=== PATIENT | male | born 1955 | race Hispanic/Latino ===

== ENCOUNTER 2018-05-26 14:19 | Emergency (ER) | payer BC ==
[2018-05-26 14:34] VITALS: O2SAT 100
--- NOTE | 2018-05-26 15:22 | C.PDOC ---
History Of Present Illness 62 y/o male comes in to ED complaining of a 2 day history of left inferior rib pain, described as sharp but no SOB. Patient denies any nausea, vomiting, or other associated symptoms. Patient also reports that his appetite has decreased. Time Seen by Provider: 05/26/18 14:44 Chief Complaint (Nursing): Chest Pain History Per: Patient History/Exam Limitations: no limitations Onset/Duration Of Symptoms: Days Current Symptoms Are (Timing): Still Present Past Medical History Reviewed: Historical Data, Nursing Documentation, Vital Signs Vital Signs: Last Vital Signs Temp 97.7 F 05/26/18 14:33 Pulse 89 05/26/18 14:33 Resp 22 05/26/18 14:33 BP 131/87 05/26/18 14:33 Pulse Ox 100 05/26/18 14:33 - Medical History PMH: Gastritis (gastroparesis), HTN Surgical History: CABG Family History: States: No Known Family Hx - Social History Hx Alcohol Use: No Hx Substance Use: No Review Of Systems Except As Marked, All Systems Reviewed And Found Negative. Cardiovascular: Positive for: Chest Pain Physical Exam - Physical Exam Appears: Non-toxic, No Acute Distress Skin: Normal Color, Warm, Dry Head: Atraumatic, Normacephalic Eye(s): bilateral: Normal Inspection Oral Mucosa: Moist Neck: Supple Cardiovascular: Rhythm Regular, No Murmur Respiratory: Normal Breath Sounds, No Rales, No Rhonchi, No Wheezing Gastrointestinal/Abdominal: Tenderness (to left epigastrium), No Guarding, No Rebound Extremity: Tenderness (to left inferior rib), No Pedal Edema Extremity: Bilateral: Normal Color And Temperature, Normal ROM Neurological/Psych: Oriented x3, Normal Speech ED Course And Treatment - Laboratory Results Result Diagrams: 05/26/18 15:22 05/26/18 15:22 ECG: Interpreted By Me, Viewed By Me ECG Rhythm: Sinus Rhythm (Normal) Interpretation Of ECG: Poor R wave profression. Normal intervals. Normal axis. No ST/T wave abnormalities. Rate From EC O2 Sat by Pulse Oximetry: 100 (RA) Pulse Ox Interpretation: Normal - Other Rad CXR X-Ray: Read By Radiologist Interpretation: Findings: Biapical pleural thickening with upper lobe granulomatous changes. Diffuse increased interstitial lung markings. Tortuous aorta. Heart size within normal limits. Impression: Biapical pleural thickening with upper lobe granulomatous changes. Diffuse increased interstitial lung markings. - CT Scan/US Chest CT Other Rad Studies (CT/US): Read By Radiologist, Radiology Report Reviewed CT/US Interpretation: Findings: Please note markedly limited evaluation for pulmonary embolism given suboptimal contrast timing bolus and technical difficulties. Consider repeat study and or correlation with V/Q scan if clinically indicated. No gross central pulmonary embolism. Evaluation for segmental and subsegmental branches is not adequately assessed on this study. Coronary atherosclerosis noted. No pleural or pericardial effusion. Atherosclerotic calcification and plaque within aorta. No significant axillary adenopathy. Heterogeneity of the thyroid. Few shotty mediastinal lymph nodes. No significant axillary adenopathy. Focal area of low attenuation seen within medial right hepatic lobe which may represent some focal fatty infiltration. This is best demonstrated on series 3, image 107. Additional etiologies not excluded. Distended gallbladder. Spleen is preserved. Nodular thickening of the adrenals. Pancreas is preserved. Small hiatal hernia. Degenerative changes in the spine. Right: Minimal apical pleural thickening. Otherwise grossly preserved. Left lung: Minimal apical pleural thickening. 3 millimeter nodule within the left upper lobe on series 4, image 50. Trachea thru central airways are patent. Impression: Please note markedly limited evaluation for pulmonary embolism given suboptimal contrast timing bolus and technical difficulties. Consider repeat study and or correlation with V/Q scan if clinically indicated. No gross central pulmonary embolism. Evaluation for segmental and subsegmental branches is not adequately assessed on this study. 3 millimeter nodule within the left upper lobe of the lung on series 4, image 50. Medical Decision Making Medical Decision Making: Impression: Atypical Chest Pain Plan: --Labs --Chest XR 15:40 Dr. Gibson in ER. Wants CTA of patient's chest. CTA Chest ordered. Disposition Counseled Patient/Family Regarding: Studies Performed, Diagnosis, Need For Followup, Rx Given - Disposition Referrals: Gabriel Arreaga Jr., MD [Medical Doctor] - Disposition: HOME/ ROUTINE Disposition Time: 17:33 Condition: STABLE Additional Instructions: follow up with your doctor within [address] Arreaga he would like to discharge you home orders given to nurse I am printing the paperwork return to ER if symptoms worsens or progress Instructions: Chest Pain That Is Not Caused by the Heart (DC) Forms: [employer] (K[place]z), General Discharge Instructions - Clinical Impression Clinical Impression: Chest pain - Scribe Statement The provider has reviewed the documentation as recorded by the Raheemibmichelle Felton Provider Attestation: All medical record entries made by the Raheemibmichelle were at my direction and personally dictated by me. I have reviewed the chart and agree that the record accurately reflects my personal performance of the history, physical exam, medical decision making, and the department course for this patient. I have also personally directed, reviewed, and agree with the discharge instructions and disposition.
[2018-05-26 15:26] LABS: BASO # 0.1 K/uL (0.0-0.2); BASO % 1.4 % (0.0-2.0); EOS # 0.1 K/uL (0.0-0.7); HEMOGLOBIN 15.3 g/dL (12.0-18.0); LYMPH # 1.8 K/uL (1.0-4.3); LYMPH % 18.6 % (20.0-40.0); MEAN CELL VOLUME 85.5 fL (80.0-94.0); MEAN CORPUSCULAR HEMOGLOBIN 29.5 pg (27.0-31.0); MEAN CORPUSCULAR HGB CONC 34.6 g/dL (33.0-37.0); MEAN PLATELET VOLUME 8.7 fL (7.2-11.7); MONO % 10.5 % (0.0-10.0); NEUT # 6.8 K/uL (1.8-7.0); NEUT % 68.5 % (50.0-75.0); RBC 5.19 Mil/uL (4.40-5.90); RED CELL DISTRIBUTION WIDTH 13.2 % (11.5-14.5); WHITE BLOOD COUNT 9.9 K/uL (4.8-10.8)
[2018-05-26 15:37] LABS: ALB/GLOB RATIO 1.7 (1.0-2.1); ALBUMIN 4.6 g/dL (3.5-5.0); ALT/SGPT 20 U/L (21-72); AST/SGOT 22 U/L (17-59); BLOOD UREA NITROGEN 20 mg/dL (9-20); CALCIUM 9.4 mg/dl (8.6-10.4); GFR NON-AFRICAN AMERICAN > 60; LIPASE 36 U/L (23-300)
[2018-05-26 15:51] LABS: B-TYPE NATRIURETIC PEPTIDE 96.3 pg/mL (0-900)
[2018-05-26] MEDS ORDERED: Iodixanol 320 MG/ML 100 ML BOTTLE IV ONE (16:23)
--- NOTE | 2018-05-26 16:24 | RAD ---
Chest x-ray single frontal view HISTORY: Shortness of breath. Comparison: None available. Findings: Biapical pleural thickening with upper lobe granulomatous changes. Diffuse increased interstitial lung markings. Tortuous aorta. Heart size within normal limits. Impression: Biapical pleural thickening with upper lobe granulomatous changes. Diffuse increased interstitial lung markings.
--- NOTE | 2018-05-26 17:20 | CT ---
CT chest pulmonary angiogram History: Shortness of breath. Comparison: None available. Technique: CT chest pulmonary angiogram was performed utilizing contiguous axial images with the use of intravenous contrast. Subsequently, sagittal and coronal reformatted images were obtained. Sagittal and coronal MIPS reformatted images were obtained. This CT exam was performed using one or more of the following dose reduction techniques: Automated exposure control, adjustment of the mA and/or kV according to patient size, and/or use of iterative reconstruction technique. Findings: Please note markedly limited evaluation for pulmonary embolism given suboptimal contrast timing bolus and technical difficulties. Consider repeat study and or correlation with V/Q scan if clinically indicated. No gross central pulmonary embolism. Evaluation for segmental and subsegmental branches is not adequately assessed on this study. Coronary atherosclerosis noted. No pleural or pericardial effusion. Atherosclerotic calcification and plaque within aorta. No significant axillary adenopathy. Heterogeneity of the thyroid. Few shotty mediastinal lymph nodes. No significant axillary adenopathy. Focal area of low attenuation seen within medial right hepatic lobe which may represent some focal fatty infiltration. This is best demonstrated on series 3, image 107. Additional etiologies not excluded. Distended gallbladder. Spleen is preserved. Nodular thickening of the adrenals. Pancreas is preserved. Small hiatal hernia. Degenerative changes in the spine. Right: Minimal apical pleural thickening. Otherwise grossly preserved. Left lung: Minimal apical pleural thickening. 3 millimeter nodule within the left upper lobe on series 4, image 50. Trachea thru central airways are patent. Impression: Please note markedly limited evaluation for pulmonary embolism given suboptimal contrast timing bolus and technical difficulties. Consider repeat study and or correlation with V/Q scan if clinically indicated. No gross central pulmonary embolism. Evaluation for segmental and subsegmental branches is not adequately assessed on this study. 3 millimeter nodule within the left upper lobe of the lung on series 4, image 50.
[2018-05-26 17:39] VITALS: BP 144/90; PULSE 80; RESP 18; TEMP 98
--- NOTE | 2018-05-28 19:53 | CARD ---
APPROVED REPORT Date of service: 05/26/2018 EKG Measurement Heart [id number] <Conclusion> Normal sinus rhythm Poor R wave progression V1 - V2. It may be positional Borderline EKG
--- NOTE | 2018-05-28 19:53 | CARD ---
APPROVED REPORT Date of service: 05/26/2018 EKG Measurement Heart [id number] <Conclusion> Normal sinus rhythm Septal infarct, age undetermined cannot be excluded Abnormal ECG
== END 2018-05-26 17:52 | disposition home or self-care (01) ==
LOC: C.ER 14:19
DX: R07.9 Chest pain, unspecified (principal)
CPT/HCPCS: 71045; 71275; 80053; 83690; 83880; 84484; 85025; 85378; 93005; 99284; Q9967